=== PATIENT | female | born 1955 | race Caucasian/White ===

== ENCOUNTER 2017-01-18 01:44 | Observation (INO) | payer MEDICARE, OTHER ==
[2017-01-18] MEDS ORDERED: LORazepam 2 MG/ML DISP.SYRIN IV ONE (02:15)
[2017-01-18] MEDS ORDERED: MORPHINE SULFATE 4 MG/ML SYRG IV ONE (02:15)
[2017-01-18] MEDS ORDERED: LORazepam 2 MG/ML DISP.SYRIN ONE (02:33)
[2017-01-18] MEDS ORDERED: MORPHINE SULFATE 4 MG/ML SYRG ONE (02:35)
[2017-01-18 02:38] LABS: Hematocrit 35.9 % (37.0-47.0); Hemoglobin 11.3 gm/dL (12.5-16.0); Mean Cell Volume 88.2 fl (78-100); Mean Corpuscular Hemoglobin 27.8 pg (27-31); Mean Corpuscular Hgb Conc 31.5 g/dl (32-36); Mean Platelet Volume 10.4 fl (6.0-9.5); Neutrophil # 4.9 K/mm3 (1.3-6.0); Neutrophil % 69.7 % (42-75.0); Platelet Count 212 K/mm3 (150-450); Red Blood Count 4.07 M/mm3 (4.2-5.4); Red Cell Distribution Width 14.4 % (11.5-14.0); White Blood Count 7.1 K/mm3 (4.0-10.5)
--- NOTE | 2017-01-18 02:38 | ERNOTE ---
Dyspnea - Date Date of Service: 01/18/17 - General Presenting Symptoms: shortness of breath Time Seen by Provider: 01/18/17 02:34 - Immun/Allergies/Home Medications Immunizations: IMMUNIZATION HX Immunizations Up to Date Yes History of Influenza Vaccine Yes Hx Pneumococcal Vaccination Yes Allergies/Adverse Reactions: Allergies ciprofloxacin [From Cipro] Allergy (Verified 01/18/17 02:03) Penicillins Allergy (Verified 01/18/17 01:46) Sulfa (Sulfonamide Antibiotics) Allergy (Verified 01/18/17 02:03) Home Medications: HOME MEDICATIONS Aspirin [Aspirin EC] 81 mg PO DAILY 01/18/17 [Last Taken Unknown] Bumetanide [Bumex] 1 mg PO DAILY 01/18/17 [Last Taken Unknown] Cholecalciferol (Vitamin D3) [Vitamin D3] 2,000 unit PO DAILY 01/18/17 [Last Taken Unknown] Cyanocobalamin (Vitamin B-12) [B-12] 1,000 mcg PO DAILY 01/18/17 [Last Taken Unknown] Docusate Sodium [Colace] 200 mg PO DAILY 01/18/17 [Last Taken Unknown] Doxycycline Hyclate [Vibratab] 100 mg PO BID 01/18/17 [Last Taken Unknown] FLUoxetine HCL [Prozac] 80 mg PO DAILY 01/18/17 [Last Taken Unknown] Ferrous Sulfate 325 mg PO DAILY 01/18/17 [Last Taken Unknown] Furosemide [Lasix] 40 mg PO DAILY 01/18/17 [Last Taken Unknown] HYDROcodone/ACETAMINOPHEN [[place] 5-325 Tablet] 1 tab PO Q6H PRN 01/18/17 [Last Taken Unknown] Levothyroxine Sodium [Synthroid] 112 mcg PO DAILY 01/18/17 [Last Taken Unknown] Menthol [Biofreeze] 1 appl TP Q4H PRN 01/18/17 [Last Taken Unknown] Montelukast Sodium [Singulair] 10 mg PO DAILY 01/18/17 [Last Taken Unknown] Nystatin 1 each TP QID PRN 01/18/17 [Last Taken Unknown] Omeprazole 20 mg PO DAILY 01/18/17 [Last Taken Unknown] Oxybutynin Chloride [Ditropan] 5 mg PO BID 01/18/17 [Last Taken Unknown] Pentoxifylline [Trental] 400 mg PO TID 01/18/17 [Last Taken Unknown] Polyethylene Glycol 3350 [Miralax] 17 gm PO DAILY 01/18/17 [Last Taken Unknown] Sennosides 8.6 mg PO BID PRN 01/18/17 [Last Taken Unknown] diphenhydrAMINE HCL [Benadryl] 25 mg PO Q6H PRN 01/18/17 [Last Taken Unknown] - History of Present Illness Narrative: This is a 61-year-old female who comes to the emergency department complaining of difficulty breathing. She says that she really hasn't been able to breathe the last 24 hours. She was moved from a custodial into a family relative's home 24 hours ago. They have 4 dogs and did not have the air conditioning on. She says that she thinks he is having difficulty breathing because of the dogs in the hot air. Patient denies any chest pain. She denies nausea or vomiting. She denies coughing. She says she might have a low-grade fever. The patient says that she has a weeping wound on her left leg. She says she is being treated with antibiotics. The patient says that she's been taking all her medicines as prescribed. Review of Systems - Review of Systems Constitutional: Present: fever, malaise EYE: Present: no symptoms reported ENT: Present: no symptoms reported Respiratory: Present: shortness of breath. Absent: cough, wheezing Cardiology: Present: no symptoms reported Gastrointestinal/Abdominal: Present: no symptoms reported Genitourinary: Present: no symptoms reported Musculoskeletal: Present: no symptoms reported Skin: Present: no symptoms reported Neurological: Present: no symptoms reported Endocrine: Present: no symptoms reported Hematologic/Lymphatic: Present: no symptoms reported Psych: Present: no symptoms reported All Other Systems: All systems neg except as marked - Patient's Past Medical History Patient History - Medical: Anxiety, Diabetes Type 2, Depression, GERD, Hypothyroidism, Kidney stone, Obesity, Osteoarthritis Patient History - Cardiac/Respiratory: Asthma, Pneumonia Patient History - Cancer: No Hx of Cancer Patient History - Surgical Procedures: Other Patient History - Other: None - Family History Mother Family History - Medical: , Diabetes Type 2 Family History - Cardiac/Respiratory: History Unknown Family History - Cancer: Lymphoma Father Family History - Medical: Family History - Cardiac/Respiratory: Myocardial Infarction Family History - Cancer: No pertinent family hx - Social History Living Situations: other Abuse History: No History of abuse Psych History: Hx of Anxiety, Hx of Depression Smoking Status: Never smoker Alcohol Use: none Drug Use: none - Immunizations Immunizations Up to Date: Yes Hx Pneumococcal Vaccination: Yes History of Influenza Vaccine: Yes Physical Exam - Physical Exam General Appearance: Present: wd/wn, alert - patient is anxious., other Head Exam: Present: normal inspection, no evidence of injury Eye Exam: Normal inspection: bilateral, PERRL: bilateral, EOMI: bilateral Ears, Nose, Throat: Present: normal ENT inspection Neck: Present: normal inspection, nontender Respiratory: Present: no respiratory distress, normal breath sounds, no accessory muscle use, chest nontender Cardiovascular/Chest: Present: regular rate, rhythm, no murmur Gastrointestinal/Abdominal: Present: other - extremely obese abdomen making examination difficult. No obvious tenderness guarding or rebound Back Exam: Present: normal inspection Extremity Exam: Present: other - patient has extreme elephantiasis of both legs. She has a slight reddish discoloration to the left calf area. She has an open wound with a deep pit within the swollen extremity. This is leaking a small amount of serous fluid. No palpable cords symmetrically swollen Neurological Exam: Present: alert, oriented, no motor/sensory deficits, other - anxious Skin Exam: Present: other - S described in extremity exam Lymphatic Exam: Present: no adenopathy ED Progress - Results and Orders Patient's Lab Results:: I have reviewed the patient's lab results. - Vital Signs Patient's Vital Signs:: I have reviewed the patient's vital signs. Vital Signs: Vital Signs 01/18/17 01/18/17 01:46 02:02 Temperature 36.4 C L Pulse Rate 71 67 Respiratory 22 H Rate O2 Sat by Pulse 96 Oximetry - EKG EKG: NSR, other EKG read: Interp. by me EKG Comments: Normal axis, slightly did QRS complex at 122 just represents IVCD not bundle branch block or LVH - X-Ray X-Ray #1 X-Ray: chest Interpretation: Interp. by me X-ray Comments: Mild congestive changes with cephalization indicating CHF - Progress/Reassessment Chief Complaint: Dyspnea Departure Clinical Impression: Congestive cardiac failure Qualifiers: Congestive heart failure type: unspecified congestive heart failure type Congestive heart failure chronicity: unspecified congestive heart failure chronicity Qualified Code(s): I50.9 - Heart failure, unspecified - Departure Disposition: [facility] Condition: Stable
[2017-01-18 02:58] LABS: Albumin * 3.6 gm/dl (3.4-5.0); Anion Gap 10.2 mmol/L (6.8-13.8); BUN/Creatinine Ratio 13.6 (9.0-21.6); Bilirubin, Total 0.4 mg/dL (0.0-1.1); Ca. Corrected For Albumin 9.5 mg/dL (8.4-10.2); Calcium * 9.5 mg/dL (7.9-10.9); Carbon Dioxide 30.2 mmol/L (24-32.6); Potassium 3.4 mmol/L (3.4-4.6); Total Protein 7.5 gm/dL (6.2-8.2)
[2017-01-18] MEDS ORDERED: FUROSEMIDE 10 MG/ML VIAL IV ONE ×2 (03:11→09:23)
[2017-01-18] MEDS ORDERED: FUROSEMIDE 10 MG/ML VIAL ONE ×3 (03:18→10:18)
[2017-01-18 03:43] LABS: Urine Bilirubin Negative (NEGATIVE); Urine Blood Negative /ul (NEGATIVE); Urine Ketone Negative (NEGATIVE); Urine Nitrite Negative (NEGATIVE); Urine Protein 15 mg/dL (NEGATIVE); Urine Urobilinogen Normal (NORMAL); Urine pH 7.5 pH (5.0-7.0)
[2017-01-18 03:46] LABS: Urine Appearance Clear; Urine Bacteria None Seen; Urine Color Yellow; Urine RBC None Seen /hpf (0-5); Urine WBC None Seen /hpf (0-5)
--- OUTSIDE RECORDS SUMMARY | 2017-01-18 04:47 | XMS REPORT | CCD ---
:1955 Author Name SHAINA OLIVEIRA Address [address] Unavailable [place], [place] [id number] Care Team Providers Name Role Phone FRANK SAN Attending Physician Unavailable Vital Signs Unknown or Not Available. Allergies Allergy Code Allergy Type Reaction Status CIPRO 094093 Drug allergy Active TAPE 0 Allergy to substance Active PEANUTS 0 Food allergy SWELLING Active AUGMENTIN 627975 Drug allergy Active PENICILLIN 54133 Drug allergy Active Procedures Unknown or Not Available. History of Immunizations Immunization Code Date Influenza, seasonal, injectable, preservative free 140 05/06/2011 influenza, injectable, quadrivalent, preservative free 150 03/20/2013 no vaccine administered 998 1955 Problems Problem Code Start Date Resolved Date Status Cellulitis and abscess of leg, except foot 13294147 03/18/2013 Active Personal history of venous thrombosis and 017957279 Active embolism Diabetes mellitus without mention of 526555775 Active complication, type II or unspecified type, not stated as uncontrolled Unspecified essential hypertension 67963836 Active Depression 66449048 Active Unspecified hypothyroidism 62068760 Active Unspecified infectious and parasitic 61204812 Active diseases Long-term (current) use of other 802781411 Active medications Results GRAM STAIN - Collect Date/Time: 10/03/2014 12:39 Test Name Code Test Result Test Units Test Ref Range SITE L ANKLE N/A PMN NONE SEEN N/A STAPH LIKE MANY N/A Active Medications Unknown or Not Available. Medications Administered During Visit Unknown or Not Available. Encounters Encounter Diagnosis Diagnosis Code Start Date ABDOMINAL PAIN, OTHER SPECIFIED SIT 47867 10/03/2014 Social History Smoking Status Code Start Date End Date Never smoker 512177350 Patient Decision Aids Unknown or Not Available. Discharge Instructions You were admitted to [facility] on 10/03/2014 with a principal diagnosis of ABDOMINAL PAIN, OTHER SPECIFIED SIT. You were discharged from [facility] on 10/03/2014. Should you have any questions prior to discharge, please contact a member of your healthcare team. If you have left the hospital and have any questions, please contact your primary care physician. Chief Complaint and Reason For Visit Unknown or Not Available. Function Status Unknown or Not Available. Plan of Care Diagnostic Test Pending Plan of Care Pending Diagnostic Test CULTURE WOUND, [LOINC: 6462-6], 10/03/2014 CULTURE URINE, [LOINC: 634-6], 10/03/2014 Referral/Transition of Care Unknown or Not Available.
--- OUTSIDE RECORDS SUMMARY | 2017-01-18 04:47 | XMS REPORT | CCD ---
:1955 Author Name JUSTINE AMBRIZ Address [address] Unavailable [place], [place] [phone] Care Team Providers Name Role Phone ANH MACK Attending Physician Unavailable Vital Signs Unknown or Not Available. Allergies Allergy Code Allergy Type Reaction Status CIPRO 514870 Drug allergy Active TAPE 0 Allergy to substance Active PEANUTS 0 Food allergy SWELLING Active AUGMENTIN 041035 Drug allergy Active PENICILLIN 62354 Drug allergy Active Procedures Unknown or Not Available. History of Immunizations Immunization Code Date Influenza, seasonal, injectable, preservative free 140 05/06/2011 influenza, injectable, quadrivalent, preservative free 150 03/20/2013 no vaccine administered 998 1955 Problems Problem Code Start Date Resolved Date Status Cellulitis and abscess of leg, except foot 57392646 03/18/2013 Active Personal history of venous thrombosis and 929673672 Active embolism Diabetes mellitus without mention of 041981268 Active complication, type II or unspecified type, not stated as uncontrolled Unspecified essential hypertension 57151661 Active Depression 77481994 Active Unspecified hypothyroidism 66845458 Active Unspecified infectious and parasitic 84825107 Active diseases Long-term (current) use of other 026688582 Active medications Results Unknown or Not Available. Active Medications Unknown or Not Available. Medications Administered During Visit Unknown or Not Available. Encounters Encounter Diagnosis Diagnosis Code Start Date BENIGN NEOPLASM BREAST 217 11/29/2014 Social History Smoking Status Code Start Date End Date Never smoker 540082813 Patient Decision Aids Unknown or Not Available. Discharge Instructions You were admitted to [facility] on 11/29/2014 with a principal diagnosis of BENIGN NEOPLASM BREAST. You were discharged from [facility] on 11/29/2014. Should you have any questions prior to discharge, please contact a member of your healthcare team. If you have left the hospital and have any questions, please contact your primary care physician. Chief Complaint and Reason For Visit Unknown or Not Available. Function Status Unknown or Not Available. Plan of Care Unknown or Not Available. Referral/Transition of Care Unknown or Not Available.
--- OUTSIDE RECORDS SUMMARY | 2017-01-18 04:47 | XMS REPORT | CCD ---
:1955 Author Name JUSTINE AMBRIZ Address [address] [facility] Unavailable [place], [place] [id number] Care Team Providers Name Role Phone ANH MACK Attending Physician Unavailable Vital Signs Unknown or Not Available. Allergies Allergy Code Allergy Type Reaction Status CIPRO 009101 Drug allergy Active TAPE 0 Allergy to substance Active PEANUTS 0 Food allergy SWELLING Active AUGMENTIN 410383 Drug allergy Active PENICILLIN 40848 Drug allergy Active Procedures Unknown or Not Available. History of Immunizations Immunization Code Date Influenza, seasonal, injectable, preservative free 140 05/06/2011 influenza, injectable, quadrivalent, preservative free 150 03/20/2013 no vaccine administered 998 1955 Problems Problem Code Start Date Resolved Date Status Cellulitis and abscess of leg, except foot 62538662 03/18/2013 Active Personal history of venous thrombosis and 072239584 Active embolism Diabetes mellitus without mention of 686739032 Active complication, type II or unspecified type, not stated as uncontrolled Unspecified essential hypertension 18153184 Active Depression 40703751 Active Unspecified hypothyroidism 27677380 Active Unspecified infectious and parasitic 68903884 Active diseases Long-term (current) use of other 191490276 Active medications Results Unknown or Not Available. Active Medications Unknown or Not Available. Medications Administered During Visit Unknown or Not Available. 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 Discharge Instructions You were admitted to [facility] on 06/18/2015 with a principal diagnosis of Benign neoplasm of left breast. You were discharged from [facility] on 06/18/2015. Should you have any questions prior to [...]
--- OUTSIDE RECORDS SUMMARY | 2017-01-18 04:47 | XMS REPORT | CCD ---
:1955 Author Name SHAINA OLIVEIRA Address [address] Unavailable [place], [place] [phone] Care Team Providers Name Role Phone ANH MACK Attending Physician Unavailable Vital Signs Unknown or Not Available. Allergies Allergy Code Allergy Type Reaction Status CIPRO 524938 Drug allergy Active TAPE 0 Allergy to substance Active PEANUTS 0 Food allergy SWELLING Active AUGMENTIN 985785 Drug allergy Active PENICILLIN 30711 Drug allergy Active Procedures Procedure Code Procedure Type Date MM DIG MAMMO [place] 26941053 SNOMED CT 12/17/2015 History of Immunizations Immunization Code Date Influenza, seasonal, injectable, preservative free 140 05/06/2011 influenza, injectable, quadrivalent, preservative free 150 03/20/2013 no vaccine administered 998 1955 Problems Problem Code Start Date Resolved Date Status Cellulitis and abscess of leg, except foot 94236115 03/18/2013 Active Personal history of venous thrombosis and 969107867 Active embolism Diabetes mellitus without mention of 463271698 Active complication, type II or unspecified type, not stated as uncontrolled Unspecified essential hypertension 09833140 Active Depression 17988069 Active Unspecified hypothyroidism 16582470 Active Unspecified infectious and parasitic 32709221 Active diseases Long-term (current) use of other 724117545 Active medications Results Unknown or Not Available. Active Medications Unknown or Not Available. Medications Administered During Visit Unknown or Not Available. Encounters Encounter Diagnosis Diagnosis Code Start Date Screening mammography 30290901 12/17/2015 Social History Smoking Status Code Start Date End Date Never smoker 878053569 Patient Decision Aids Unknown or Not Available. Discharge Instructions You were admitted to [facility] on 12/17/2015 13:30 with a principal diagnosis of Encounter for screening mammogram for malignant neoplasm of breast You were discharged from [facility] on 12/17/2015 13:30 Should you have any questions prior to [...]
--- OUTSIDE RECORDS SUMMARY | 2017-01-18 04:47 | XMS REPORT | CCD ---
:1955 Author Name SINDYANH GAN Beatriz Address [address] [facility] [place] [address] Care Team Providers Name Role Phone JOSE SMITH Attending Physician Unavailable Allergies Allergy Code Allergy Type Reaction Status CIPRO 429013 Drug allergy Active TAPE 0 Allergy to substance Active PEANUTS 0 Food allergy SWELLING Active AUGMENTIN 680806 Drug allergy Active PENICILLIN 14892 Drug allergy Active Active Medications Unknown or Not Available. Problems Problem Code Start Date Resolved Date Status Cellulitis and abscess of leg, except foot 78246674 03/18/2013 Active Personal history of venous thrombosis and 548686199 Active embolism Diabetes mellitus without mention of 853782747 Active complication, type II or unspecified type, not stated as uncontrolled Unspecified essential hypertension 96738440 Active Depression 97373614 Active Unspecified hypothyroidism 95629936 Active Unspecified infectious and parasitic 61328607 Active diseases Long-term (current) use of other 686668430 Active medications Procedures Procedure Code Procedure Type Date PT EVALUATION MEDIUM 247585501 SNOMED CT 07/16/2016 Results Unknown or Not Available. Function Status Unknown or Not Available. History of Immunizations Immunization Code Date Influenza, seasonal, injectable, preservative free 140 05/06/2011 influenza, injectable, quadrivalent, preservative free 150 03/20/2013 no vaccine administered 998 1955 Plan of Treatment Unknown or Not Available. Social History Smoking Status Code Start Date End Date Never smoker 720017870 Vital Signs Vital Sign Value Unit Date/Time Recent/Initial? Weight Measured 1 [lb_av] 07/16/2016 14:07 Initial VS Function Status Unknown or Not Available. Goals Unknown or Not Available. ASSESSMENTS Unknown or Not Available. Health Concerns Section Unknown or Not Available.
--- OUTSIDE RECORDS SUMMARY | 2017-01-18 04:47 | XMS REPORT | CCD ---
:1955 Author Name JUSTINE AMBRIZ Address [address] Unavailable [place], [place] [phone] Care Team Providers Name Role Phone ANH MACK Attending Physician Unavailable Vital Signs Unknown or Not Available. Allergies Allergy Code Allergy Type Reaction Status CIPRO 481996 Drug allergy Active TAPE 0 Allergy to substance Active PEANUTS 0 Food allergy SWELLING Active AUGMENTIN 015001 Drug allergy Active PENICILLIN 26249 Drug allergy Active Procedures Unknown or Not Available. History of Immunizations Immunization Code Date Influenza, seasonal, injectable, preservative free 140 05/06/2011 influenza, injectable, quadrivalent, preservative free 150 03/20/2013 no vaccine administered 998 1955 Problems Problem Code Start Date Resolved Date Status Cellulitis and abscess of leg, except foot 61175477 03/18/2013 Active Personal history of venous thrombosis and 373203668 Active embolism Diabetes mellitus without mention of 184940320 Active complication, type II or unspecified type, not stated as uncontrolled Unspecified essential hypertension 43435833 Active Depression 22169475 Active Unspecified hypothyroidism 49542411 Active Unspecified infectious and parasitic 63497336 Active diseases Long-term (current) use of other 530711344 Active medications Results Unknown or Not Available. Active Medications Unknown or Not Available. Medications Administered During Visit Unknown or Not Available. 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 Discharge Instructions You were admitted to [facility] on 12/17/2015 13:29 with a principal diagnosis of Benign neoplasm of left breast You were discharged from [facility] on 12/17/2015 13:29 Should you have any questions prior to [...]
--- OUTSIDE RECORDS SUMMARY | 2017-01-18 04:47 | XMS REPORT | CCD ---
:1955 Author Name SHAINA OLIVEIRA Address [address] Unavailable [place], [place] [phone] Care Team Providers Name Role Phone ANH MACK Attending Physician Unavailable Vital Signs Unknown or Not Available. Allergies Allergy Code Allergy Type Reaction Status CIPRO 765877 Drug allergy Active TAPE 0 Allergy to substance Active PEANUTS 0 Food allergy SWELLING Active AUGMENTIN 132044 Drug allergy Active PENICILLIN 33252 Drug allergy Active Procedures Procedure Code Procedure Type Date MAMMOGRAPHY NEC 8737 ICD-9 CM, Volume 3 11/29/2014 MM DIG MAMMO [place] 96494465 SNOMED CT 11/29/2014 History of Immunizations Immunization Code Date Influenza, seasonal, injectable, preservative free 140 05/06/2011 influenza, injectable, quadrivalent, preservative free 150 03/20/2013 no vaccine administered 998 1955 Problems Problem Code Start Date Resolved Date Status Cellulitis and abscess of leg, except foot 67704754 03/18/2013 Active Personal history of venous thrombosis and 593243716 Active embolism Diabetes mellitus without mention of 818604293 Active complication, type II or unspecified type, not stated as uncontrolled Unspecified essential hypertension 29903777 Active Depression 21937450 Active Unspecified hypothyroidism 51107888 Active Unspecified infectious and parasitic 27528834 Active diseases Long-term (current) use of other 863273985 Active medications Results Unknown or Not Available. Active Medications Unknown or Not Available. Medications Administered During Visit Unknown or Not Available. Encounters Encounter Diagnosis Diagnosis Code Start Date OTH SCREEN MAMMO FOR MAL NEOPLASM V7612 11/29/2014 Social History Smoking Status Code Start Date End Date Never smoker 805232001 Patient Decision Aids Unknown or Not Available. Discharge Instructions You were admitted to [facility] on 11/29/2014 with a principal diagnosis of OTH SCREEN MAMMO FOR MAL NEOPLASM. You had the following procedures done:MAMMOGRAPHY NEC You were discharged from [facility] on 11/29/2014. Should you have any questions [...]
--- NOTE | 2017-01-18 04:56 | HP ---
Chief Complaint - Chief Complaint Date of Service: 01/18/17 Time of Service: 04:56 Chief Complaint: "SOB". Source of HPI- Pt; reliable, ERP report. History of Present Illness: Ms. Patino is a 61-yr-old WF pt who normally sees Merari Vergara, a Family Practice Physician in [place]. Her PMH is significant for:Asthma, Athritism Cellulitis, Depression, DM II, DVT, GERD, HTN, Hypothyroidism,Kidney Stone, Lymphedema, PVD, Vasculitis & Venous insufficiency.Pt states that she about her 2 months ago, she fell at her home and sustained a RT humerous fracture. She had surgery at the [facility] & later got transferred to a senior living in [facility] for continued rehabilitation. The funding she got covered for only 100 days and so she made arrangements to live with a friend in town as otherwise, her monthly social security disability funding was going to be deducted to cover for cost at the [place]. She states that wanted to save her funding to find a new apartment as she got evicted along with her two teenage sons from the [facility] they were living at in [place]. Her close friend offered to provide her living accommodation after she opted to be discharged from the senior living yesterday. She states that her friend's house is filthy and she owns four dogs. Tonight, she says, she felt she could not breath due to the filthy air in her friend's home and there was no air conditioning running. She states that she felt as though she was "breathing dog fur & dust from dog dandruff." She called the EMS as she could not catch her breath. She normally sleeps on a recliner. She denies fevers and chills. She also denies n/v, abdominal pain, diarrhea & chest pain. She states that she is Wheelchair bound and can pivot for a very short distance. At the ED, most of the Lab-work was unremarkable except for an elevated BNP of 721. V.S were stable. UA was normal. The CXR had findings concerning for CHF and she got diuresed with Lasix 80mg IV. She will be admitted under observation status for CHF and placement finding. - Patient's Past Medical History Patient History - Medical: Anxiety, Diabetes Type 2, Depression, GERD, Hypothyroidism, Kidney stone, Obesity, Osteoarthritis Patient History - Cardiac/Respiratory: Asthma, Pneumonia Patient History - Cancer: No Hx of Cancer Patient History - Surgical Procedures: Other Patient History - Other: None - Family History Mother Family History - Medical: , Diabetes Type 2 Family History - Cardiac/Respiratory: History Unknown Family History - Cancer: Lymphoma Father Family History - Medical: Family History - Cardiac/Respiratory: Myocardial Infarction Family History - Cancer: No pertinent family hx - Social History Living Situations: other Abuse History: No History of abuse Psych History: Hx of Anxiety, Hx of Depression Smoking Status: Never smoker Alcohol Use: none Drug Use: none - Immunizations Immunizations Up to Date: Yes Hx Pneumococcal Vaccination: Yes History of Influenza Vaccine: Yes Review Of Systems (GEN) - Review of Systems Generalized/Overall Review: Present: Weakness, Weight loss. Absent: Chills, Fever, Malaise EENTM: Absent: Eye Pain, Double Vision, Nose Congestion Respiratory: Present: Shortness of Breath, Orthopnea. Absent: Cough, Wheezing Cardiac: Absent: Chest Pain, Edema, Palpitations Abdominal: Present: Nausea. Absent: Vomiting, Hematemesis, Abdominal Pain, Constipation, Diarrhea Genitourinary: Absent: Burning, Itching, Frequency Musculoskeletal: Absent: Joint Pain, Back Pain, Joint Swelling Neurological: Absent: Headache, Anxiety, Depressed, Emotional Problems, Numbness , Parasthesia Skin: Absent: Dryness, Lesions, Bruising Endocrine: Present: Intolerance to Heat. Absent: Intolerance to Cold, Increased Hunger, Increased Thirst Misc: All systems neg except as marked Allergies/Adverse Reactions: Allergies Allergy/AdvReac Type Severity Reaction Status Date / Time ciprofloxacin [From Cipro] Allergy Verified 01/18/17 02:03 Penicillins Allergy Verified 01/18/17 01:46 Sulfa (Sulfonamide Allergy Verified 01/18/17 02:03 Antibiotics) Home Medications: HOME MEDICATIONS Aspirin [Aspirin EC] 81 mg PO DAILY 01/18/17 [Last Taken Unknown] Bumetanide [Bumex] 1 mg PO DAILY 01/18/17 [Last Taken Unknown] Cholecalciferol (Vitamin D3) [Vitamin D] 2,000 unit PO DAILY 01/18/17 [Last Taken Unknown] Cyanocobalamin (Vitamin B-12) [B-12] 1,000 mcg PO DAILY 01/18/17 [Last Taken Unknown] Docusate Sodium [Colace] 200 mg PO DAILY 01/18/17 [Last Taken Unknown] Doxycycline Hyclate [Vibratab] 100 mg PO BID 01/18/17 [Last Taken Unknown] FLUoxetine HCL [Prozac] 80 mg PO DAILY 01/18/17 [Last Taken Unknown] Ferrous Sulfate 325 mg PO DAILY 01/18/17 [Last Taken Unknown] Furosemide [Lasix] 40 mg PO DAILY 01/18/17 [Last Taken Unknown] HYDROcodone/ACETAMINOPHEN [[place] 5-325 Tablet] 1 tab PO Q6H PRN 01/18/17 [Last Taken Unknown] Levothyroxine Sodium [Synthroid] 112 mcg PO DAILY 01/18/17 [Last Taken Unknown] Menthol [Biofreeze] 1 appl TP Q4H PRN 01/18/17 [Last Taken Unknown] Montelukast Sodium [Singulair] 10 mg PO DAILY 01/18/17 [Last Taken Unknown] Omeprazole 20 mg PO DAILY 01/18/17 [Last Taken Unknown] Oxybutynin Chloride [Ditropan] 5 mg PO BID 01/18/17 [Last Taken Unknown] Pentoxifylline [Trental] 400 mg PO TID 01/18/17 [Last Taken Unknown] Polyethylene Glycol 3350 [Miralax] 17 gm PO DAILY 01/18/17 [Last Taken Unknown] Sennosides 8.6 mg PO BID PRN 01/18/17 [Last Taken Unknown] diphenhydrAMINE HCL [Benadryl] 25 mg PO Q6H PRN 01/18/17 [Last Taken Unknown] Exam - Exam Vital Signs: Vital Signs - Last Taken Temp 36.4 C L 01/18/17 01:46 Pulse 72 01/18/17 04:15 Resp 18 01/18/17 04:15 BP 173/84 01/18/17 04:15 Pulse Ox 93 01/18/17 04:15 Constitutional: Present: Alert, Oriented x3, Cooperative, No distress, Morbidly obese ENT Exam: Present: normal ENT inspection, hearing grossly normal, dry mucous membranes. Absent: nasal congestion, nasal drainage Eye Exam: bilateral eye: normal inspection, PERRL Neck: Present: non-tender, full range of motion, supple Back Exam: Present: normal inspection Breasts: Present: Exam deferred Respiratory: Present: no respiratory distress, no accessory muscle use, No wheezing Cardiovascular/Chest: Present: regular rate, rhythm Abdomen: Present: Normal bowel sounds, nontender, obese /Rectal: Present: Exam deferred Extremity: Present: lower extremity edema - Non pitting BLE Skin Exam: Present: other - Erythema on RLE. Redness on Intertriginious areas of Abdomen, under breasts Lymphatic: Present: no adenopathy Neurologic: Present: no motor/sensory deficits, alert, normal mood/affect, oriented x 3 Appearance: Present: appropriate appearance, appropriate insight Eye contact: Present: cooperative, good eye contact, normal speech Thoughts: Present: normal thought pattern, no apparent hallucination Diagnostic Studies: Laboratory Results WBC 7.1 K/mm3 (4.0-10.5) 01/18/17 02:30 RBC 4.07 M/mm3 (4.2-5.4) L 01/18/17 02:30 Hgb 11.3 gm/dL (12.5-16.0) L 01/18/17 02:30 Hct 35.9 % (37.0-47.0) L 01/18/17 02:30 MCV 88.2 fl (78-100) 01/18/17 02:30 MCH 27.8 pg (27-31) 01/18/17 02:30 MCHC 31.5 g/dl (32-36) L 01/18/17 02:30 RDW 14.4 % (11.5-14.0) H 01/18/17 02:30 Plt Count 212 K/mm3 (150-450) 01/18/17 02:30 MPV 10.4 fl (6.0-9.5) H 01/18/17 02:30 Immature Gran % (Auto) 0.30 % (0.001-0.429) 01/18/17 02:30 Immature Gran # (Auto) 0.02 K/mm3 (0.000-0.0310) 01/18/17 02:30 Neutrophils % 69.7 % (42-75.0) 01/18/17 02:30 Lymphocytes % 17.0 % (20-51) L 01/18/17 02:30 Monocytes % 8.9 % (0.0-9) 01/18/17 02:30 Eosinophils % 3.5 % (0.0-3.0) H 01/18/17 02:30 Basophils % 0.6 % (0.0-1.0) 01/18/17 02:30 Nucleated RBC % 0.0 k/mm3 (0-1) 01/18/17 02:30 Neutrophils # 4.9 K/mm3 (1.3-6.0) 01/18/17 02:30 Lymphocytes # 1.2 k/mm3 (1.5-3.5) L 01/18/17 02:30 Monocytes # 0.6 k/mm3 (0.0-1.0) 01/18/17 02:30 Eosinophils # 0.3 k/mm3 (0.0-0.7) 01/18/17 02:30 Absolute Basophils 0.0 k/mm3 (0.0-0.1) 01/18/17 02:30 Sodium 140 mmol/L (132-142) 01/18/17 02:30 Plasma Sodium 140 mmol/L (130-142) 01/18/17 02:30 Potassium 3.4 mmol/L (3.4-4.6) 01/18/17 02:30 Chloride 103 mmol/L (97-106) 01/18/17 02:30 Carbon Dioxide 30.2 mmol/L (24-32.6) 01/18/17 02:30 Anion Gap 10.2 mmol/L (6.8-13.8) 01/18/17 02:30 BUN 12 mg/dL (3-23) 01/18/17 02:30 Creatinine 0.88 mg/dL (0.4-1.4) 01/18/17 02:30 Est GFR (Non-Af Amer) 70 mL/min (60-130) 01/18/17 02:30 BUN/Creatinine Ratio 13.6 (9.0-21.6) 01/18/17 02:30 Random Glucose 108 mg/dL (70-110) 01/18/17 02:30 Calcium 9.5 mg/dL (7.9-10.9) 01/18/17 02:30 Calcium Adj for Albumin 9.5 mg/dL (8.4-10.2) 01/18/17 02:30 Total Bilirubin 0.4 mg/dL (0.0-1.1) 01/18/17 02:30 AST 12 U/L (0-48) 01/18/17 02:30 ALT 18 U/L (19-67) L 01/18/17 02:30 Alkaline Phosphatase 116 U/L (50-170) 01/18/17 02:30 B-Natriuretic Peptide 721 pg/mL (5-205) H 01/18/17 02:30 Total Protein 7.5 gm/dL (6.2-8.2) 01/18/17 02:30 Albumin 3.6 gm/dl (3.4-5.0) 01/18/17 02:30 Urine Color Yellow 01/18/17 03:15 Urine Appearance Clear 01/18/17 03:15 Urine pH 7.5 pH (5.0-7.0) 01/18/17 03:15 Ur Specific [place] 1.010 SP.GR. (1.005-1.010) 01/18/17 03:15 Urine Protein 15 mg/dL (NEGATIVE) H 01/18/17 03:15 Urine Glucose (UA) Negative mg/dL (NEGATIVE) 01/18/17 03:15 Urine Ketones Negative mg/dL (NEGATIVE) 01/18/17 03:15 Urine Blood Negative /ul (NEGATIVE) 01/18/17 03:15 Urine Nitrate Negative (NEGATIVE) 01/18/17 03:15 Urine Bilirubin Negative mg/dl (NEGATIVE) 01/18/17 03:15 Prot Sulfosalicylic Acd Negative mg/dL (0) 01/18/17 03:15 Urine Urobilinogen Normal EU/dl (NORMAL) 01/18/17 03:15 Ur Leukocyte Esterase Negative /ul (NEGATIVE) 01/18/17 03:15 Urine RBC None seen /hpf (0-5) 01/18/17 03:15 Urine WBC None seen /hpf (0-5) 01/18/17 03:15 Ur Epithelial Cells None seen /hpf (0-5) 01/18/17 03:15 Urine Bacteria None seen (NONE) 01/18/17 03:15 Urine Culture Comments No culture indicated 01/18/17 03:15 Assessment/Plan - Assessment/Plan (1) Cellulitis Assessment: She has erythema on RT lower Extremity with an indented wound that weeps, but no opening on it. She denies fevers and was also afebrile here. Her WBC is in the normal range. She was recently started on Doxycycline 100mg bid. No need to change/switch antibiotics. Problem: Acute (2) CHF (congestive heart failure) Assessment: She complained of feeling SOB but not with exacerbation or at rest and was provoked by the living environment. She did not requires any Oxygen supplementation and her LS did not have any rales. However, with elevated BNP and CXF findings-Will continue with IV diuretics. Monitor accurate I/O, & Daily weight. Check BMP in am. Problem: Acute (3) Discharge planning issues Assessment: She will need placement at discharge. She states that if she knew the living conditions at her friend's she would have chosen to continue staying at the half-way in [facility] until she found an apartment. She is declining to be discharged to her friend's home and she lacks other social support. Will have case mgt assist with placement finding. Problem: Acute (4) Diabetes Assessment: She is not on any oral/insulin medications for DM and has not been for a while. states that her BS were never high and so was told by PCP to stop. Problem: Chronic (5) Vasculitis Problem: Chronic (6) Hypothyroidism Problem: Chronic (7) HTN (hypertension) Problem: Chronic Qualifiers: Hypertension type: essential hypertension Qualified Code(s): I10 - Essential (primary) hypertension (8) GERD (gastroesophageal reflux disease) Assessment: Stable- On Omeprazole. Problem: Chronic (9) Peripheral vascular disease Assessment: Stable- On Problem: Acute
[2017-01-18 06:18] LABS: Anion Gap 12.8 mmol/L (6.8-13.8); BUN/Creatinine Ratio 13.4 (9.0-21.6); Calcium * 9.4 mg/dL (7.9-10.9); Carbon Dioxide 30.4 mmol/L (24-32.6); Estimated Creat Clear 63.8; Potassium 3.2 mmol/L (3.4-4.6)
[2017-01-18] MEDS ORDERED: NON-FORMULARY 1 DOSE DOSE (Menthol [Biofreeze] 1 APPL) TP PRN (06:34)
[2017-01-18] MEDS ORDERED: SENNOSIDES 8.6 MG TABLET PO PRN (06:34)
[2017-01-18] MEDS ORDERED: POTASSIUM CHLORIDE 20 MEQ TABLET.SA PO ONE ×2 (06:45→13:24)
[2017-01-18] MEDS: HYDROcodone/ACETAMINOPHEN 1 EACH TABLET PO PRN ×3 (07:23→20:06)
[2017-01-18] MEDS: LEVOTHYROXINE SODIUM 112 MCG TABLET PO SCH (07:57)
[2017-01-18] MEDS ORDERED: DOXYCYCLINE HYCLATE 100 MG TABLET PO SCH ×2 (09:00→09:30)
[2017-01-18] MEDS ORDERED: BUMETANIDE 1 MG TABLET PO SCH (09:00)
[2017-01-18] MEDS ORDERED: NYSTATIN 30 APPL TUBE TP PRN (09:16)
[2017-01-18] MEDS ORDERED: FUROSEMIDE 40 MG, FUROSEMIDE 20 MG IV ONE ×2 (09:30)
[2017-01-18] MEDS: FLUoxetine HCL 20 MG CAPSULE PO SCH (10:01)
[2017-01-18] MEDS: MONTELUKAST SODIUM 10 MG TABLET PO SCH (10:01)
[2017-01-18] MEDS: PENTOXIFYLLINE 400 MG TABLET.SA PO SCH ×3 (10:01→16:46)
[2017-01-18] MEDS: OXYBUTYNIN CHLORIDE 5 MG TABLET PO SCH ×2 (10:02→20:07)
[2017-01-18] MEDS: PANTOPRAZOLE SODIUM 20 MG TABLET.DR PO SCH (10:02)
[2017-01-18] MEDS: CYANOCOBALAMIN 1,000 MCG TABLET PO SCH (10:03)
[2017-01-18] MEDS: FERROUS SULFATE 325 MG TABLET PO SCH (10:03)
[2017-01-18] MEDS: CHOLECALCIFEROL 1,000 UNIT CAPSULE PO SCH (10:03)
[2017-01-18] MEDS: DOCUSATE SODIUM 100 MG CAPSULE PO SCH (10:03)
[2017-01-18] MEDS: ASPIRIN 81 MG TABLET.DR PO SCH (10:03)
[2017-01-18] MEDS: NYSTATIN 30 APPL TUBE TP SCH ×3 (10:04→16:46)
[2017-01-18] MEDS: POLYETHYLENE GLYCOL 3350 119 GM BTL PO SCH (10:04)
[2017-01-18] MEDS: DOXYCYCLINE HYCLATE 100 MG TABLET PO SCH (20:07)
[2017-01-18] MEDS: diphenhydrAMINE HCL 25 MG CAPSULE PO PRN (21:18)
[2017-01-18] MEDS ORDERED: HYDROcodone/ACETAMINOPHEN 1 EACH TABLET PO ONE (22:47)
[2017-01-19] MEDS: diphenhydrAMINE HCL 25 MG CAPSULE PO PRN (05:05)
[2017-01-19] MEDS: HYDROcodone/ACETAMINOPHEN 1 EACH TABLET PO PRN (05:39)
[2017-01-19 07:15] VITALS: BP 116/54
[2017-01-19] MEDS: LEVOTHYROXINE SODIUM 112 MCG TABLET PO SCH (07:23)
[2017-01-19] MEDS: POLYETHYLENE GLYCOL 3350 119 GM BTL PO SCH (08:54)
[2017-01-19] MEDS: CHOLECALCIFEROL 1,000 UNIT CAPSULE PO SCH (08:55)
[2017-01-19] MEDS: MONTELUKAST SODIUM 10 MG TABLET PO SCH (08:55)
[2017-01-19] MEDS: PANTOPRAZOLE SODIUM 20 MG TABLET.DR PO SCH (08:55)
[2017-01-19] MEDS: NYSTATIN 30 APPL TUBE TP SCH (08:55)
[2017-01-19] MEDS: CYANOCOBALAMIN 1,000 MCG TABLET PO SCH (08:55)
[2017-01-19] MEDS: FLUoxetine HCL 20 MG CAPSULE PO SCH (08:55)
[2017-01-19] MEDS: DOXYCYCLINE HYCLATE 100 MG TABLET PO SCH (08:55)
[2017-01-19] MEDS: OXYBUTYNIN CHLORIDE 5 MG TABLET PO SCH (08:56)
[2017-01-19] MEDS: DOCUSATE SODIUM 100 MG CAPSULE PO SCH (08:56)
[2017-01-19] MEDS: FERROUS SULFATE 325 MG TABLET PO SCH (08:56)
[2017-01-19] MEDS: ASPIRIN 81 MG TABLET.DR PO SCH (08:56)
[2017-01-19] MEDS: PENTOXIFYLLINE 400 MG TABLET.SA PO SCH (08:56)
[2017-01-19] MEDS ORDERED: FUROSEMIDE 40 MG TABLET PO SCH (09:00)
--- NOTE | 2017-01-19 09:01 | DS ---
(1) Obesity, Class III, BMI 40-49.9 (morbid obesity) Problem: Chronic Description of Stay: ADMISSION DATE: 01/18/2017 DISCHARGE DATE: 01/19/2017 ADMISSION HPI BY MARIZOL AVILES: Ms. Patino is a 61-yr-old WF pt who normally sees Merari Vergara, a Family Practice Physician in [place]. Her PMH is significant for:Asthma, Athritism Cellulitis, Depression, DM II, DVT, GERD, HTN, Hypothyroidism,Kidney Stone, Lymphedema, PVD, Vasculitis & Venous insufficiency.Pt states that she about her 2 months ago, she fell at her home and sustained a RT humerous fracture. She had surgery at the [facility] & later got transferred to a prison in [facility] for continued rehabilitation. The funding she got covered for only 100 days and so she made arrangements to live with a friend in town as otherwise , her monthly social security disability funding was going to be deducted to cover for cost [place] the [place]. She states that wanted to save her SS funding to find a new apartment as she got evicted along with her two teenage sons from the [facility] they were living at in [place]. Her close friend offered to provide her living accommodation after she opted to be discharged from the prison yesterday. She states that her friend's house is filthy and she owns four dogs. Tonight, she says, she felt she could not breath due to the filthy air in her friend's home and there was no air conditioning running. She states that she felt as though she was "breathing dog fur & dust from dog dandruff." She called the EMS as she could not catch her breath. She normally sleeps on a recliner. She denies fevers and chills. She also denies n/v, abdominal pain, diarrhea & chest pain. She states that she is Wheelchair bound and can pivot for a very short distance. At the ED, most of the Lab-work was unremarkable except for an elevated BNP of 721. V.S were stable. UA was normal. The CXR had findings concerning for CHF and she got diuresed with Lasix 80mg IV. She will be admitted under observation status for CHF and placement finding. HOSPITAL COURSE: The patient was discharged from the [facility] she had been staying at in [place] on 01/16/2017. The patient was discharged home to a friends house that the patient states was filthy and had 4 dogs and she felt short of breath and did not feel comfortable living in the felt so called an ambulance to bring her to the emergency department for further evaluation. The patient's presenting complaint of shortness of breath is most likely secondary to environmental allergies and a history of asthma in combination with new exposure to 4 dogs living in the home (her friend's home) that she was discharged to. The patient's shortness of breath has improved and essentially resolved since being out of her friend's house and in the hospital. I do not believe that the patient has acutely decompensated heart failure. The patient denies any known history of heart failure. One could consider outpatient echocardiogram. The patient is on diuretics at home not for heart failure but she states it is for fluid retention which is most likely secondary to her extreme obesity, poor diet choices and sedentary lifestyle. Also of note, after being discharged on 01/16/2017, she was supposed to go to the pharmacy to sweet pickle maker her medications on her way home but the patient states due to some issues with the pharmacy she did not sweet pickle maker her medications and thus was unable to take her medications as prescribed after discharge. The patient has chronic lower extremity edema with evidence of venous stasis dermatitis skin changes and chronic erythema. No signs of acute infection. Patient was continued on her home doxycycline. I would recommend that the patient follow-up with her wound clinic physician as an outpatient after discharge. The patient was discharged in stable condition to [facility]. FOLLOW-UP APPOINTMENTS: -Consider outpatient echocardiogram -Follow up with physician at [facility] -Consider follow-up with the patients wound care physician NEW OR CHANGED MEDICATIONS: None DISCONTINUED MEDICATIONS: None RADIOLOGY REPORTS: Single view chest x-ray on 01/18/2017 showed: The patient has a large body habitus. The cardiac silhouette is at least borderline in size. Mediastinum and hilum are within normal limits. There is mild prominence of the central pulmonary vascularity without pulmonary edema. The lung cheung are clear. I do not see evidence for an infiltrate, effusion or pulmonary edema. IMPRESSION : BORDERLINE CARDIAC SIZE. MILD CENTRAL PULMONARY CONGESTION WITHOUT EDEMA. NO ACUTE CARDIOPULMONARY PROCESS. Procedures Performed: none Results and Findings: Laboratory Tests 08/14/17 08/14/17 08/14/17 02:30 02:30 05:50 WBC 7.1 Hgb 11.3 L Hct 35.9 L MCV 88.2 Plt Count 212 Sodium 140 143 H Plasma Sodium 140 143 H Potassium 3.4 3.2 L Chloride 103 103 Carbon Dioxide 30.2 30.4 Anion Gap 10.2 12.8 BUN 12 11 Creatinine 0.88 0.82 Est GFR (Non-Af Amer) 70 76 BUN/Creatinine Ratio 13.6 13.4 Random Glucose 108 106 Calcium 9.5 9.4 Calcium Adj for Albumin 9.5 Total Bilirubin 0.4 AST 12 ALT 18 L Alkaline Phosphatase 116 B-Natriuretic Peptide 721 H Total Protein 7.5 Albumin 3.6 Discharge Disposition: Other HealthCare facility Disposition: Other health care facility Condition: Stable Discharge Activity: Activity as tolerated Discharge Diet: Low salt, Low fat/chol Referrals: Merari Vergara DO [Primary Care Provider] - Additional Patient Instructions (free text): [facility] nephrology on 02/02/17 at 11am. Complete Home Medications List: Complete Home Medication List: Aspirin [Aspirin EC] 81 mg PO DAILY 01/18/17 Bumetanide [Bumex] 1 mg PO DAILY 01/18/17 Cholecalciferol (Vitamin D3) [Vitamin D3] 2,000 unit PO DAILY 01/18/17 Cyanocobalamin (Vitamin B-12) [B-12] 1,000 mcg PO DAILY 01/18/17 Docusate Sodium [Colace] 200 mg PO DAILY 01/18/17 Doxycycline Hyclate [Vibratab] 100 mg PO BID 01/18/17 FLUoxetine HCL [Prozac] 80 mg PO DAILY 01/18/17 Ferrous Sulfate 325 mg PO DAILY 01/18/17 Furosemide [Lasix] 40 mg PO DAILY 01/18/17 HYDROcodone/ACETAMINOPHEN [[place] 5-325 Tablet] 1 tab PO Q6H PRN 01/18/17 Levothyroxine Sodium [Synthroid] 112 mcg PO DAILY 01/18/17 Menthol [Biofreeze] 1 appl TP Q4H PRN 01/18/17 Montelukast Sodium [Singulair] 10 mg PO DAILY 01/18/17 Nystatin 1 each TP QID PRN 01/18/17 Omeprazole 20 mg PO DAILY 01/18/17 Oxybutynin Chloride [Ditropan] 5 mg PO BID 01/18/17 Pentoxifylline [Trental] 400 mg PO TID 01/18/17 Polyethylene Glycol 3350 [Miralax] 17 gm PO DAILY 01/18/17 Sennosides 8.6 mg PO BID PRN 01/18/17 diphenhydrAMINE HCL [Benadryl] 25 mg PO Q6H PRN 01/18/17
== END 2017-01-19 10:54 ==
LOC: ER 01:44 → MS 04:43
PROVIDERS: ADMIT Nurse Practitioner; ATTEND Internal Medicine
DX: E66.01 Morbid (severe) obesity due to excess calories (principal); Z68.44 Body mass index [BMI] 60.0-69.9, adult; I87.2 Venous insufficiency (chronic) (peripheral); I87.8 Other specified disorders of veins; J45.909 Unspecified asthma, uncomplicated; E11.9 Type 2 diabetes mellitus without complications; I10 Essential (primary) hypertension; K21.9 Gastro-esophageal reflux disease without esophagitis; E03.9 Hypothyroidism, unspecified; M19.90 Unspecified osteoarthritis, unspecified site
CPT/HCPCS: 36415; 71010; 80048; 80053; 81001; 83880; 85025; 87040; 87081; 93005; 96374; 96375; 99285; G0378